=== PATIENT | male | born 1950 | race Caucasian/White ===

== ENCOUNTER → 2017-06-24 | Outpatient (CLI) | payer MEDICARE ==
--- NOTE | 2017-06-24 09:10 | REP ---
PA and lateral chest: A comparison is 02/07/2008. Lung more are clear. Cardiac size is upper normal, unchanged. The tre, mediastinum, and bony thorax are unremarkable and unchanged. Impression: Essentially negative PA and lateral chest. There is no interval change. Signed by Jimmy Mullen MD 06/24/2017 09:02 A
== END ==
LOC: M CLY 08:16
PROVIDERS: ATTEND Family Medicine
DX: I10 Essential (primary) hypertension (principal); E11.9 Type 2 diabetes mellitus without complications
CPT/HCPCS: 71020; G0463

== ENCOUNTER → 2017-07-16 | Outpatient (REF) | payer MEDICARE ==
[2017-07-16 12:16] LABS: BASO % 0.6 % (0.0-1.0); EOS # 0.1 K/mm3 (0.0-0.50); EOS % 1.7 % (0.0-3.0); LYMPH # 1.8 K/mm3 (1.5-4.5); LYMPH % 29.4 % (24.0-44.0); MEAN CORPUSCULAR HEMOGLOBIN 35.2 pg (27.0-33.0); MEAN CORPUSCULAR HGB CONC 35.2 g/dl (32.0-36.5); MEAN CORPUSCULAR VOLUME 99.8 fl (80.0-96.0); MONO # 0.6 K/mm3 (0.0-0.8); NEUTROPHILS # 3.1 K/mm3 (1.8-7.7); NEUTROPHILS % 55.3 % (36.0-66.0); RED CELL DISTRIBUTION WIDTH 12.8 % (11.5-14.5); WHITE BLOOD COUNT 5.6 K/mm3 (4.0-10.0)
[2017-07-16 12:20] LABS: INR 0.85
[2017-07-16 12:48] LABS: ANION GAP 10 MEQ/L (8-16); BLOOD UREA NITROGEN 21 MG/DL (7-18); CALCIUM LEVEL 8.8 MG/DL (8.8-10.2); CARBON DIOXIDE LEVEL 28 MEQ/L (21-32); CHLORIDE LEVEL 103 MEQ/L (98-107); CREATININE FOR GFR 0.95 MG/DL (0.70-1.30); GLOMERULAR FILTRATION RATE > 60.0 (>49); GLUCOSE, FASTING 127 MG/DL (80-110); POTASSIUM SERUM 3.8 MEQ/L (3.5-5.1); SODIUM LEVEL 141 MEQ/L (136-145)
== END ==
LOC: M LABDRAWC 11:27
PROVIDERS: ATTEND Internal Medicine
DX: Z01.812 Encounter for preprocedural laboratory examination (principal); D64.9 Anemia, unspecified; I10 Essential (primary) hypertension; N39.0 Urinary tract infection, site not specified; Z79.01 Long term (current) use of anticoagulants

== ENCOUNTER 2020-05-25 10:21 | Emergency (ER) | payer MEDICARE ==
[~2020-05-25] VITALS: Ht 180.3 cm; Wt 115.2 kg
--- NOTE | 2020-05-25 11:13 | REP ---
Clinical: Pain. Technique: Internal rotation, external rotation, Y view of the right shoulder. Findings: Evidence for prior right shoulder replacement. No obvious acute fracture. No definite dislocation. Electronically Signed by Neo Marks MD 05/25/2020 11:05 A
[2020-05-25] MEDS ORDERED: FENO48TA7 PO (11:16)
[2020-05-25] MEDS ORDERED: HYDR25TAB PO (11:16)
[2020-05-25] MEDS ORDERED: METF500T13 PO (11:16)
[2020-05-25] MEDS ORDERED: LOSA100T50 PO (11:16)
[2020-05-25] MEDS ORDERED: CARV25TA PO (11:16)
[2020-05-25] MEDS ORDERED: ASPI81TA86 PO (11:16)
--- NOTE | 2020-05-25 11:49 | REP ---
Clinical: Preoperative assessment . Comparison: 06/24/2017 . Technique: PA and lateral. Findings: The mediastinum and cardiac silhouette are normal. The lung more are clear and without acute consolidation, effusion, or pneumothorax. The skeletal structures are intact and normal. Impression: 1. No acute cardiopulmonary process. Electronically Signed by Neo Marks MD 05/25/2020 11:41 A
[2020-05-25 12:01] LABS: BASO % 0.6 % (0.0-1.0); EOS # 0.1 10^3/uL (0.0-0.5); EOS % 1.9 % (0.0-3.0); HEMATOCRIT 41.4 % (42.0-52.0); HEMOGLOBIN 13.8 g/dl (13.5-17.5); LYMPH # 1.5 10^3/uL (1.5-5.0); LYMPH % 23.8 % (24.0-44.0); MEAN CORPUSCULAR HEMOGLOBIN 34.2 pg (27.0-33.0); MEAN CORPUSCULAR HGB CONC 33.3 g/dl (32.0-36.5); MEAN CORPUSCULAR VOLUME 102.7 fl (80.0-96.0); MONO # 0.9 10^3/uL (0.0-0.8); MONO % 14.6 % (0.0-5.0); NEUTROPHILS # 3.8 10^3/uL (1.5-8.5); NEUTROPHILS % 58.8 % (36.0-66.0); PLATELET COUNT, AUTOMATED 230 10^3/uL (150-450); RED BLOOD COUNT 4.03 10^6/uL (4.30-6.10); WHITE BLOOD COUNT 6.4 10^3/uL (4.0-10.0)
[2020-05-25 12:22] LABS: ALBUMIN 3.7 GM/DL (3.2-5.2); ALT/SGPT 52 U/L (12-78); BILIRUBIN,TOTAL 0.3 MG/DL (0.2-1.0); BLOOD UREA NITROGEN 25 MG/DL (7-18); C REACTIVE PROTEIN QUANTITATIV < 0.30 MG/DL (0.00-0.30); CALCIUM LEVEL 8.9 MG/DL (8.8-10.2); CARBON DIOXIDE LEVEL 27 MEQ/L (21-32); CHLORIDE LEVEL 107 MEQ/L (98-107); CREATININE FOR GFR 0.91 MG/DL (0.70-1.30); ERYTHROCYTE SEDIMENTATION RATE 17 mm/hr (0-20); GLOMERULAR FILTRATION RATE > 60.0 (>42); GLUCOSE, FASTING 120 MG/DL (70-100); POTASSIUM SERUM 3.8 MEQ/L (3.5-5.1); SODIUM LEVEL 138 MEQ/L (136-145); TOTAL PROTEIN 7.2 GM/DL (6.4-8.2)
[2020-05-25] MEDS ORDERED: NS 1,000 ML IV SCH (12:40)
[2020-05-25] MEDS: propofoL 200 MG/20 ML VIAL IV PRN (13:13)
--- NOTE | 2020-05-25 13:19 | REP ---
Clinical: Follow-up post reduction. Technique: Single portable view of the right shoulder. Findings: Evidence for prior shoulder replacement. The humerus appears to be in satisfactory position in relation to the glenoid replacement. Electronically Signed by Neo Marks MD 05/25/2020 01:10 P
[2020-05-25 14:16] VITALS: BP 135/66
--- NOTE | 2020-05-25 17:51 | ECGEPIP ---
[facility] - ED Test Date: 2020-05-25 Pat Name: GUDELIA CAMARENA Department: Room: - Gender: Male Egg Packer: [id number] : [id number] Requested By: Mariluz Colon Order Number: [id number] Reading MD: Mariluz Colon Measurements Intervals [place] Rate: 55 P: 28 TX: 177 QRS: 17 QRSD: 98 T: -1 QT: 446 QTc: 429 Interpretive Statements SINUS BRADYCARDIA NONSPECIFIC T-WAVE ABNORMALITY No prior Electronically Signed on 05-25-2020 17:51:06 EDT by Mariluz Colon
--- NOTE | 2020-05-25 19:01 | HPE ---
DATE OF ADMISSION: 05/25/2020 CHIEF COMPLAINT: Right dislocated right total shoulder arthroplasty (RTSA). HISTORY OF PRESENT ILLNESS: This is 70-year-old man has bilateral reverse total shoulder arthroplasty. They were done in [place]. The first one was done first on the left side in 2018; and subsequently about four months later, he had the right side performed as well by Dr. Ben Taylor in [place] in the [facility]. He only had an injections for that, no other prior surgeries. No previous dislocations or problem or pain. No chest pain, fever, chills, sweats, drainage, redness, swelling, warmth about the shoulder. Today at about 3 hours before I saw him this morning at around 9 or 10 in the morning he was lifting a door with his arm extended on the left side of his body. He felt something not feel right above his shoulder, possibly a pop and unable to lift his arm. He is right-hand dominant. Past medical history includes: Deep vein thrombosis (DVT) in 2002. He went on [place] filter, as well after a repeat clot despite anticoagulation after left total shoulder arthroplasty. He has had a prostatectomy. He has borderline diabetic. He has hypertension. MEDICATIONS: Carvedilol, losartan, potassium, metformin. ALLERGIES: No known drug allergies. PAST SURGICAL HISTORY: 1. Hernia. 2. Prostatectomy SOCIAL HISTORY: He normally is a resident of [place]. His son as Qasim Stevens, public health representative at [employer]. 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 He has been doing this for 2 weeks. He is nonsmoker. His nothing by mouth since examine with coffee. PHYSICAL EXAMINATION: 70-year-old man. He is alert and oriented x3. Vital signs: Stable, temperature 97.8. Blood pressure 125/60. Respiratory rate 20, 98% on 2 liters nasal prongs. Pulse rate 55 regular, unlabored breathing. Flexion of both extremities reveal anterior deltopectoral incision on both sides. No redness, warmth or drainage. There is fullness in the anterior shoulder on the right side. There is pain palpation in the deltoid. He has normal sensation and motor function of the deltoid plus median radial ulnar nerves and AIN/PIN. Strong radial pulse regular right. Hands warm well perfused. Appears to unable to lift his arm. There is pain with range of motion testing of the right arm. Radiographs were taken of right shoulder. This demonstrates an anterior dislocation of the humeral component reverse total shoulder arthroplasty. Otherwise, the components appear well fixed; although I do not have prior radiographs to compare to. The glenoid side looks well fixed. There is no obvious humeral fracture. This appears to be noncemented implant on the humeral side. WBC count 6.4, ESR 17 and CRP under 0.3. ASSESSMENT/PLAN: 70-year-old man has what seems to be a provoked anterior instability episode of the right shoulder. This man was performed a high risk activity and loaded extension of his right shoulder, this likely provoked a dislocation. I have overall low suspicion of infection. I spoke with his son, as well as with Mr. Stevens. We talked about the pros and cons, risks and benefits of nonsurgical management versus attempt at closed reduction and possibly considering open revision for a failed closed reduction. In my opinion the next best step was to proceed with a closed reduction in the emergency department. Specific risks of this were discussed and I signed consent form for closed reduction of right shoulder. Specific risks include but are not limited to pain, stiffness, weakness, neurovascular injury fracture new or other component. Failure to achieve reduction or maintain the reduction, other risks, anesthetic complications, blood clots, and need for open procedures. He wished to go ahead and perform conscious sedation and closed reduction. Placement into a sling afterwards. There was a satisfying reduction felt and the arm was stable. AP radiograph was taken and appeared appropriate, appropriately reduced with no obvious fracture or other loosening. I have thoroughly warned him that he need to stay in a sling for up to six weeks' time full-time. He needs to avoid extension, internal rotation and adduction of his arm in order to avoid further instability episodes. The patient understands he should follow up with me in 1-2 weeks time or with their surgeon in [place] at the earliest possible time. The patient is neurovascular intact with normal sensation, motor function in the hand in the MRU and AIN and PIN nerve distributions, as well strong radial pulse normal sensation to the deltoid after closed reduction. PROCEDURE NOTE: I talked about the pros and cons, risks and benefits of going ahead right upper extremity shoulder adduction and sling application. Wished to ahead. The emergency department physician performed a sedation. Forward flexed his arm with slight longitudinal traction and performed reduction maneuver with direct posteriorly based pressure on the anterior aspect the humerus. At this point, this achieved a good reduction and clamped in nicely. Arm was taken through forward elevation to approximately 90 degrees, felt to be stable and external rotation at 20 degrees as well is felt to be stable. AP radiograph was taken of the flat plate. This showed the reduction to be achieved and no obvious fracture or other complication.
== END 2020-05-25 14:33 | disposition home or self-care (01) ==
LOC: M ED 10:21
DX: T84.028A Dislocation of other internal joint prosthesis, initial encounter (principal); X58.XXXA Exposure to other specified factors, initial encounter; Y92.89 Other specified places as the place of occurrence of the external cause; I10 Essential (primary) hypertension; E11.9 Type 2 diabetes mellitus without complications; E78.9 Disorder of lipoprotein metabolism, unspecified; Z79.899 Other long term (current) drug therapy; Z79.84 Long term (current) use of oral hypoglycemic drugs; Z88.8 Allergy status to other drugs, medicaments and biological substances
CPT/HCPCS: 23650; 71045; 73020; 73030; 80053; 85025; 85652; 86140; 86850; 86900; 86901; 93005; 93041; 94760; 96361; 96374; 99285; U0002